=== PATIENT | male | born 1975 | race Caucasian/White ===

== ENCOUNTER 2017-11-09 19:50 | Emergency (ER) | payer OTHER ==
[~2017-11-09] VITALS: Ht 177.8 cm; Wt 95.5 kg
[2017-11-09 19:52] VITALS: BP 141/91; PULSE 93; RESP 16; TEMP 98.7; O2SAT 98
--- NOTE | 2017-11-09 20:53 | PD ---
HPI Chief Complaint: Back/ Neck Pain or Injury Time Seen by Provider: 20:15 Travel History International Travel<30 days: No Contact w/Intl Traveler<30days: No Traveled to known affect area: No History of Present Illness HPI 42 year old male presents to the emergency room for evaluation of low back pain worse on the right that started earlier today. Patient was taking this 2-year- old daughter when pain started. He felt immediate, sharp pain without radiation. Pain is made worse by any range of motion of the back. He has not taken anything to improve symptoms. Since then he has had intermittent paresthesias the right lower extremity. He denies saddle anesthesia or loss of bowel or bladder control. Denies fever, chills, nausea, vomiting, IV drug use, weight loss. Denies chronic medical conditions or daily medications. No history of chronic back pain. [facility] Social History Tobacco Use: No Allergies-Medications (Allergen,Severity, Reaction): Coded Allergies: Penicillins (Verified Allergy, Severe, Anaphylaxis, 11/09/17) Reported Meds & Prescriptions Reported Meds & Active Scripts Active Medrol Dosepak (Methylprednisolone) 4 Mg Dspk 4 Mg PO DIRECTED Per Pharmacist direction Review of Systems Except as stated in HPI: all other systems reviewed are Neg Physical Exam Narrative GENERAL: Well-nourished, well-developed male in no acute distress. Afebrile. Ambulatory. SKIN: Focused skin assessment warm/dry. HEAD: Normocephalic. EYES: No scleral icterus. No injection or drainage. NECK: Supple, trachea midline. No JVD or lymphadenopathy. CARDIOVASCULAR: Regular rate and rhythm without murmurs, gallops, or rubs. RESPIRATORY: Breath sounds equal bilaterally. No accessory muscle use. BACK: No CVA tenderness. No rash. No significant tenderness to palpation of the lumbar spine. Mild tenderness to palpation of the right paraspinous musculature of the lumbar spine. Mild edema of the lower lumbar spine. Data Data Last Documented VS Vital Signs Date Time Temp Pulse Resp B/P (MAP) Pulse Ox O2 Delivery O2 Flow Rate FiO2 11/09/17 22:14 11/09/17 19:52 98.7 93 16 98 Orders Orders Spine, Lumbar - Ltd (Ap & Lat) (11/09/17 ) Ketorolac Inj (Toradol Inj) (11/09/17 21:00) Orphenadrine Inj (Norflex Inj) (11/09/17 21:00) Splint Or Brace Apply/Monitor (11/09/17 21:42) Ed Discharge Order (11/09/17 21:43) Brace Quick Draw Corset (11/09/17 ) [facility] Medical Decision Making Medical Screen Exam Complete: Yes Emergency Medical Condition: Yes Medical Record Reviewed: Yes Differential Diagnosis Strain, fracture, slipped disc, degenerative disc disease, sprain Narrative Course 42-year-old male presents to the emergency room for evaluation of acute low back pain after lifting his 2-year-old daughter earlier today. Pain is more on the right lumbar paraspinous musculature without radiation. No red flag symptoms. No significant midline tenderness. History and physical exam are consistent with muscle strain. Because there is some edema and intermittent paresthesias, x-ray was obtained. Patient signed out to night time provider pending results. Scripts Methylprednisolone Dosepak (Medrol Dosepak) 4 Mg Dspk 4 MG PO DIRECTED, #1 DSPK 0 Refills Per Pharmacist direction Prov: Destiny Chacon 11/09/17 Condition: Stable Ashlee Haile Nov 09, 2017 20:53
[2017-11-09] MEDS ORDERED: ORPHENADRINE INJ 60 MG/2 ML AMP IM ONE (21:00)
[2017-11-09] MEDS ORDERED: KETOROLAC TROMETHAMINE 60 MG/2 ML (IM) VIAL IM ONE (21:00)
--- NOTE | 2017-11-09 21:38 | RADRPT ---
EXAM DATE/TIME: 11/09/2017 20:56 [place] COMPARISON: No previous studies available for comparison. INDICATIONS : Lumbar spine pain after patient twisted back lifting injury today MEDICAL HISTORY : None. SURGICAL HISTORY : None. ENCOUNTER: Initial ACUITY: 1 day PAIN SCORE: 7/10 LOCATION: Lumbar spine FINDINGS: Approximately 7 mm anterolisthesis L4-5 is identified. Spondylolysis is difficult to exclude. Slight degenerative changes seen scattered throughout the CONCLUSION: Grade I anterolisthesis L4-5. Ryan Chicas MD on November 09, 2017 at 21:35 Board Certified Radiologist. This report was verified electronically.
--- NOTE | 2017-11-09 21:46 | PD ---
Physical Exam Time Seen by Provider: 21:43 Narrative Please refer to previous providers documentation for details surrounding the patient's current visit Data Data Last Documented VS Vital Signs Date Time Temp Pulse Resp B/P (MAP) Pulse Ox O2 Delivery O2 Flow Rate FiO2 11/09/17 19:52 98.7 93 16 141/91 (108) 98 Orders Orders Spine, Lumbar - Ltd (Ap & Lat) (11/09/17 ) Ketorolac Inj (Toradol Inj) (11/09/17 21:00) Orphenadrine Inj (Norflex Inj) (11/09/17 21:00) Splint Or Brace Apply/Monitor (11/09/17 21:42) Ed Discharge Order (11/09/17 21:43) [facility] Medical Record Reviewed: Yes Supervised Visit with ARMEN: No Narrative Course Patient is signed out to me with x-ray imaging pending. X-ray imaging is reviewed and discussed with the patient. CT imaging is reviewed and shows Grade I anterolisthesis L4-5. He'll be discharged home with a quick draw back brace, encouraged follow-up with primary care provider and return immediately with any acute worsening of symptoms. Diagnosis Primary Impression: Low back strain Qualified Codes: S39.012A - Strain of muscle, fascia and tendon of lower back , initial encounter Referrals: Neurosurgeon Primary Care Physician Patient Instructions: General Instructions, Low Back Strain (ED) Additional Instruction: Follow-up with a primary care provider Outpatient MRI may be warranted if symptoms persist Wear brace when ambulatory for support. Do not wear this at all times as it may weaken your core muscles, worsening your back pain [facility] of symptoms Med/Other Pt SpecificInfo: Prescription(s) given Scripts Methylprednisolone Dosepak (Medrol Dosepak) 4 Mg Dspk 4 MG PO DIRECTED, #1 DSPK 0 Refills Per Pharmacist direction Prov: Destiny Chacon 11/09/17 Disposition: 01 DISCHARGE HOME Condition: Stable Destiny Chacon Nov 09, 2017 21:46
[2017-11-09] MEDS ORDERED: MEDR4PAK PO (21:49)
== END 2017-11-09 22:12 | disposition home or self-care (01) ==
LOC: NEPK 19:50 → NEPD 22:12
DX: S39.012A Strain of muscle, fascia and tendon of lower back, initial encounter (principal); X50.9XXA Other and unspecified overexertion or strenuous movements or postures, initial encounter
CPT/HCPCS: 72100; 96372; 99283; J1885; J2360; L0627

== ENCOUNTER 2018-04-01 14:03 | Emergency (ER) | payer OTHER ==
[~2018-04-01 14:03] MED LIST: MEDR4PAK PO
[2018-04-01 14:11] VITALS: BP 123/79; PULSE 87; RESP 16; TEMP 98.2; O2SAT 99
[2018-04-01] MEDS ORDERED: NAPR500T2 PO (15:08)
--- NOTE | 2018-04-01 15:08 | PD ---
HPI Chief Complaint: Pain: Acute or Chronic Time Seen by Provider: 14:32 Travel History International Travel<30 days: No Contact w/Intl Traveler<30days: No Traveled to known affect area: No History of Present Illness HPI Is a 43-year-old man presents emerged from complaining of left heel pain. He reports that he has had a previous Achilles tendon rupture with surgical repair several years ago. Today woke up with pain and tenderness in the back of the heel, worse when he dorsiflexes the foot, or with prolonged standing. 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 No athletics. No new change in activity or new foot wear. No other complaints. History Past Medical History Narrative Medical Previous Achilles tendon rupture with surgical repair Social History Alcohol Use: No Tobacco Use: No Allergies-Medications (Allergen,Severity, Reaction): Coded Allergies: Penicillins (Verified Allergy, Severe, Anaphylaxis, 11/09/17) Uncoded Allergies: steroids (Allergy, Severe, 04/01/18) Reported Meds & Prescriptions Reported Meds & Active Scripts Active Medrol Dosepak (Methylprednisolone) 4 Mg Dspk 4 Mg PO DIRECTED Per Pharmacist direction Review of Systems Except as stated in HPI: all other systems reviewed are Neg Physical Exam Narrative GENERAL: Well-appearing 43-year-old man, no acute distress. SKIN: Warm and dry. CARDIOVASCULAR: Warm and well perfused. RESPIRATORY: Normal rate and effort. MUSCULOSKELETAL: Focused examination of the left ankle reveals a little bit tender fullness on the distal Achilles tendon overlying the insertion site on the calcaneus. There is pain with palpation. There is no palpable deformity or disruption of the Achilles tendon. Negative Lubin's test. There is no pain with plantarflexion of the ankle. This swelling appears possibly a little bit fluctuant. NEUROLOGICAL: Awake and alert. No gross deficits. Data Data Last Documented VS Vital Signs Date Time Temp Pulse Resp B/P (MAP) Pulse Ox O2 Delivery O2 Flow Rate FiO2 04/01/18 14:11 98.2 87 16 123/79 (94) 99 MDM Medical Decision Making Medical Screen Exam Complete: Yes Emergency Medical Condition: Yes Differential Diagnosis Apophysitis, bursitis, ezthenopathy, tendinopathy, other Narrative Course Medical decision making Is a 43 oh man presents with a little pain and tender swelling over his Achilles tendon. Of concern, patient is a previous Achilles tendon rupture and previous surgical repair. He has no pain with plantarflexion against resistance the ankle suggesting against the tendinopathy. Will bit of pain with palpation I think this is more likely a bursitis. Will recommend decreased activity level, guarded the ankle some, short course of NSAIDs, outpatient follow-up with Ortho Evra symptoms are not improving. Diagnosis Primary Impression: Achilles bursitis Referrals: Marilynn Regan MD 1 week Patient Instructions: General Instructions Additional Instructions: Reduce tension on the Achilles tendon as discussed with protecting against abrupt flexion of the foot or flexion of the foot against resistance. Take Naprosyn as prescribed. Follow-up with Dr. Regan if you have any persistent symptoms after 1 week. Return to the emergency department for any new or worsening symptoms. Med/Other Pt SpecificInfo: Prescription(s) given Scripts Naproxen (Naproxen) 500 Mg Tab 500 MG PO BID, #20 TAB 0 Refills Prov: Vineet Atkins MD 04/01/18 Disposition: 01 DISCHARGE HOME Condition: Stable Vineet Atkins MD April 01, 2018 15:08
== END 2018-04-01 15:25 | disposition home or self-care (01) ==
LOC: NEPD 14:03
DX: M76.62 Achilles tendinitis, left leg (principal)
CPT/HCPCS: 99283

== ENCOUNTER → 2018-04-26 | Outpatient (CLI) | payer OTHER ==
[~2018-04-26] MED LIST changes: +NAPR500T2 PO
--- NOTE | 2018-04-26 14:07 | RADRPT ---
EXAM DATE: 04/26/2018 1:52 PM EDT AGE/SEX: 43 years / Male INDICATIONS: . Back pain. CLINICAL DATA: This is the patient's initial encounter. Patient reports that signs and symptoms have been present for 1 month and indicates a pain score of 4/10. MEDICAL/SURGICAL HISTORY: None. . Achilles tendon repair. COMPARISON: No prior exams available for comparison. TECHNIQUE: Multiplanar, multisequence MRI of the lumbar spine was performed without contrast. Patie nt was scanned in a sitting position; neutral, flexion, and extension scans were performed in the sa gittal plane. FINDINGS: Vertebra: Homogeneous signal. Normal alignment. Conus: There is grade 1 anterior spondylolisthesis of L4 on L5 secondary to pars defects. T12-L1: The thecal sac has a normal diameter. No evidence of disc bulge or protrusion. The neural foramina are patent bilaterally. L1-L2: The disc demonstrates decreased signal. The thecal sac has a normal diameter. No evidence of disc bulge or protrusion. The neural foramina are patent bilaterally. L2-L3: The thecal sac has a normal diameter. No evidence of disc bulge or protrusion. The neural foramina are patent bilaterally. L3-L4: The thecal sac has a normal diameter. No evidence of disc bulge or protrusion. The neural foramina are patent bilaterally. L4-L5: Again noted is the grade 1 anterior spondylolisthesis. The disc demonstrates decreased heigh t and decreased signal. It maintains its alignment with the superior aspect of L5 creating a bulge li ke configuration. There is mild facet hypertrophy. Narrowing of the thecal sac is not seen. There is narrowing of the neural foramina bilaterally secondary to the bulging disc configuration. L5-S1: The thecal sac has a normal diameter. No evidence of disc bulge or protrusion. The neural foramina are patent bilaterally. There is mild facet hypertrophy. CONCLUSION: 1. Grade 1 anterior spondylolisthesis of L4 on L5 secondary to pars defects. The bulging disc config uration does cause narrowing of the neural foramina bilaterally. 2. Decreased signal in the disc at the L1-L2 level consistent with some desiccation. Loss of height is not seen. 3. Lower lumbar facet hypertrophy. Electronically signed by: Esvin Luke MD 04/26/2018 2:06 PM EDT
== END ==
LOC: HRAD 12:54
PROVIDERS: ATTEND Family Medicine
DX: M54.16 Radiculopathy, lumbar region (principal)
CPT/HCPCS: 72148

== ENCOUNTER 2018-08-28 11:19 | Observation (INO) ==
[2018-08-28 11:24] VITALS: TEMP 97.8
[2018-08-28 12:26] VITALS: RESP 18
[2018-08-28 13:01] LABS: Baso % (Auto) 0.6 % (0.0-2.0); Eos # (Auto) 0.2 th/mm3 (0.0-0.4); Eos % (Auto) 2.3 % (0.0-4.0); Hematocrit 45.2 % (39.0-51.0); Hemoglobin 15.9 gm/dL (13.0-17.0); Lymph # (Auto) 2.3 th/mm3 (1.0-4.8); Lymph % (Auto) 25.9 % (9.0-44.0); Mean Corpuscular HGB Conc 35.3 % (32.0-36.0); Mean Corpuscular Hemoglobin 31.8 pg (27.0-34.0); Mean Corpuscular Volume 90.1 fL (80.0-100.0); Mean Platelet Volume 7.9 fL (7.0-11.0); Mono # (Auto) 0.5 th/mm3 (0.0-0.9); Mono % (Auto) 5.6 % (0.0-8.0); Neut # (Auto) 5.7 th/mm3 (1.8-7.7); Neut % (Auto) 65.6 % (16.0-70.0); Platelet Count 280 th/mm3 (150-450); Red Blood Count 5.01 mil/mm3 (4.50-5.90); Red Cell Distribution Width 12.9 % (11.6-17.2); White Blood Count 8.7 th/mm3 (4.0-11.0)
--- NOTE | 2018-08-28 13:01 | ED ---
HPI General Chief Complaint: Chest Pain Stated Complaint: Chest Pain Time Seen by Provider: 08/28/18 12:21 Source: patient Mode of arrival: ambulatory Limitations: no limitations History of Present Illness HPI narrative: 43-year-old male presents to the emergency department for evaluation of right-sided chest pain that started while playing with his daughter couple days ago. Patient states that the pain is located in the right lower chest and is since migrated to the right chest wall and is associated with shortness of breath. The pain increases with deep breaths and rated 7/10 at its worse. As he is sitting, his pain is 5/6 out of 10. He denies nausea or vomiting. He denies history of chest pain previously. He has a history of hypertension but denies history of hyperlipidemia, diabetes, tobacco use. Says he occasionally drinks alcohol. He said he had a stress test as part of his normal check for work and states this was normal. He denies history of cardiac or pulmonary issues. MD complaint: Reports chest pain Onset (ago): day(s) Duration: constant Onset: during exertion Pain location: Reports right chest Severity: moderate Quality: Reports aching Pain radiation: Reports none Relieving factors: remaining still Exacerbating factors: inspiration Context: Denies recent surgery, recent immobilization, recent travel, trauma/ injury and history of DVT/PE Associated symptoms: Denies nausea and vomiting Treatments prior to arrival chest pain: Reports none Related Data Home Medications Medication Instructions Recorded Confirmed gabapentin 300 mg PO BID 07/12/18 08/28/18 ibuprofen 400 mg PO QID PRN 07/12/18 08/28/18 lisinopril 10 mg PO DAILY 07/12/18 08/28/18 Allergies Allergy/AdvReac Type Severity Reaction Status Date / Time Penicillins Allergy Severe Anaphylaxis Verified 11/09/17 21:01 steroids Allergy Severe Anaphylaxis Uncoded 07/12/18 10:00 Review of Systems ROS: all other systems reviewed are negative [facility] Medical History Medical History Achilles rupture (Acute) Chronic low back pain (Acute) High blood pressure (Acute) Kidney stones (Acute) Surgical History Surgical History Hx of hernia repair (Acute) Social History Social History Substance History: No History of Abuse Second Hand Smoke Exposure: No Smoking Status: Never smoker Tobacco Type: Smokeless Tobacco How Often Do You Have a Drink Containing Alcohol: 4 or more times a week Recent Travel in [facility] within the Last 8 Weeks: No Recent Out of Country Travel within the Last 8 Weeks: No Immunization History Tetanus Immunization: Unsure Exam Narrative Exam Narrative: GENERAL: Well-developed well-nourished in no apparent distress SKIN: Focused skin assessment warm/dry. HEAD: Atraumatic. Normocephalic. EYES: Pupils equal and round. No scleral icterus. No injection or drainage. ENT: No nasal bleeding or discharge. Mucous membranes pink and moist. NECK: Trachea midline. No JVD. No lymphadenopathy CARDIOVASCULAR: Regular rate and rhythm. No murmur appreciated. Mild tenderness palpation of the chest wall, patient says it is "pressure" when I palpate RESPIRATORY: No accessory muscle use. Clear to auscultation. Breath sounds equal bilaterally. GASTROINTESTINAL: Abdomen soft, non-tender, nondistended. Hepatic and splenic margins not palpable. No CVA tenderness MUSCULOSKELETAL: No obvious deformities. No clubbing. No cyanosis. No edema. Tenderness palpation of the calves NEUROLOGICAL: Awake and alert. No obvious cranial nerve deficits. Motor grossly within normal limits. Normal speech. PSYCHIATRIC: Appropriate mood and affect; insight and judgment normal. Course Initial Documented Vital Signs Temperature 97.8 F 08/28/18 11:22 Pulse Rate 90 08/28/18 11:22 Respiratory Rate 20 08/28/18 11:22 Blood Pressure 142/82 H 08/28/18 11:22 Pulse Oximetry 98 08/28/18 11:22 Last Documented Vital Signs Temperature 97.8 F 08/28/18 11:22 Pulse Rate 68 08/28/18 13:23 Respiratory Rate 18 08/28/18 13:23 Blood Pressure 126/75 08/28/18 13:23 Pulse Oximetry 98 08/28/18 13:23 Clinical Decision Support HEART Score Questions History: Slightly suspicious EKG: Normal Age: < 45 years Risk Factors: 1-2 Risk Factors Initial Troponin: Normal Limit Heart Score HEART Score: 1 PERC Rule Age greater than or equal to 50: No HR greather than or equal to 100: No Sa02 on room air is less than 95%: No Unilateral Leg Swelling: No Hemoptysis: No Recent Surgery or Trauma: Yes (lumbar spine steroid injection) Prior PE or DVT: No Hormone Use: No Medical Decision Making MDM Narrative Medical decision making narrative: 43-year-old male presents to the emergency department for evaluation of chest pain started a couple days ago after playing with his daughter. Patient says the pain is located in the right chest wall and is nonradiating and the pain is 5/10 with sitting, increased to 7/10 with deep breaths. 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 Vital signs are stable. Unable to completely use the PERC rule to rule out PE. Order d-dimer which was negative. Cardiac enzymes negative. EKG sinus rhythm rate 79, No STEMI changes. No previous for comparison. Zofran for nausea. ASA 324mg administered. Hydrocodone for pain as he was unsure if he would stay in the [facility]. He agrees to stay for observation. Pt will be admitted to the chest pain center, r/o ACS. Will apply nitro paste. Medical Screen Exam Complete: Yes Emergency Medical Condition: Yes Differential Diagnosis Differential Diagnosis: Atypical chest pain, angina, muscle spasm, chest wall contusion, rib fracture, pericardial effusion Lab Data Result diagrams: 08/28/18 10:42 08/28/18 10:42 Lab Results 08/28/18 08/28/18 08/28/18 Range/Units 10:42 10:42 10:42 WBC 8.7 (4.0-11.0) th/mm3 RBC 5.01 (4.50-5.90) mil/mm3 Hgb 15.9 (13.0-17.0) gm/dL Hct 45.2 (39.0-51.0) % MCV 90.1 (80.0-100.0) fL MCH 31.8 (27.0-34.0) pg MCHC 35.3 (32.0-36.0) % RDW 12.9 (11.6-17.2) % Plt Count 280 (150-450) th/mm3 MPV 7.9 (7.0-11.0) fL Neut % (Auto) 65.6 (16.0-70.0) % Lymph % (Auto) 25.9 (9.0-44.0) % [place] % (Auto) 5.6 (0.0-8.0) % Eos % (Auto) 2.3 (0.0-4.0) % Baso % (Auto) 0.6 (0.0-2.0) % Neut # (Auto) 5.7 (1.8-7.7) th/mm3 Lymph # (Auto) 2.3 (1.0-4.8) th/mm3 [place] # (Auto) 0.5 (0.0-0.9) th/mm3 Eos # (Auto) 0.2 (0.0-0.4) th/mm3 Baso # (Auto) 0.0 (0.0-0.2) th/mm3 WBC Differential . Differential Comment Auto diff final PT 10.0 (9.8-11.6) sec INR 1.0 Ratio APTT 26.0 (24.3-30.1) sec D-Dimer Quant (PE/DVT) 0.23 (0.00-0.50) mg/L FEU Sodium (136-145) meq/L Potassium (3.5-5.1) meq/L Chloride (98-107) meq/L Carbon Dioxide (21.0-32.0) meq/L Anion Gap (5-15) meq/L BUN (7-18) mg/dL Creatinine (0.60-1.30) mg/dL Estimated GFR (>89) mL/min Random Glucose (74-106) mg/dL Calcium (8.5-10.1) mg/dL Total Bilirubin (0.2-1.0) mg/dL AST (15-37) U/L ALT (12-78) U/L Alkaline Phosphatase (45-117) U/L Troponin I (0.02-0.05) ng/mL Total Protein (6.4-8.2) g/dL Albumin (3.4-5.0) g/dL 08/28/18 Range/Units 10:42 WBC (4.0-11.0) th/mm3 RBC (4.50-5.90) mil/mm3 Hgb (13.0-17.0) gm/dL Hct (39.0-51.0) % MCV (80.0-100.0) fL MCH (27.0-34.0) pg MCHC (32.0-36.0) % RDW (11.6-17.2) % Plt Count (150-450) th/mm3 MPV (7.0-11.0) fL Neut % (Auto) (16.0-70.0) % Lymph % (Auto) (9.0-44.0) % [place] % (Auto) (0.0-8.0) % Eos % (Auto) (0.0-4.0) % Baso % (Auto) (0.0-2.0) % Neut # (Auto) (1.8-7.7) th/mm3 Lymph # (Auto) (1.0-4.8) th/mm3 [place] # (Auto) (0.0-0.9) th/mm3 Eos # (Auto) (0.0-0.4) th/mm3 Baso # (Auto) (0.0-0.2) th/mm3 WBC Differential Differential Comment PT (9.8-11.6) sec INR Ratio APTT (24.3-30.1) sec D-Dimer Quant (PE/DVT) (0.00-0.50) mg/L FEU Sodium 139 (136-145) meq/L Potassium 4.6 (3.5-5.1) meq/L Chloride 106 (98-107) meq/L Carbon Dioxide 27.9 (21.0-32.0) meq/L Anion Gap 5 (5-15) meq/L BUN 11 (7-18) mg/dL Creatinine 1.12 (0.60-1.30) mg/dL Estimated GFR 71 L (>89) mL/min Random Glucose 85 (74-106) mg/dL Calcium 8.8 (8.5-10.1) mg/dL Total Bilirubin 0.5 (0.2-1.0) mg/dL AST 18 (15-37) U/L ALT 26 (12-78) U/L Alkaline Phosphatase 60 (45-117) U/L Troponin I Less than 0.02 L (0.02-0.05) ng/mL Total Protein 7.8 (6.4-8.2) g/dL Albumin 4.2 (3.4-5.0) g/dL Imaging Data Radiologist's impression: Chest X-Ray 08/28/18 12:32 CONCLUSION: No acute intrathoracic disease. Discharge Plan Discharge Disposition Patient Disposition: 30 Still Patient Discharge Condition Condition: Stable Discharge Order Discharge Orders: Discharge Order (Routine); Ordered 08/28/18 Ordered By: Kyle A Azzarello Discharge Details Diagnosis: Chest pain Physicians Team ED Provider: Glory Kwok ED Midlevel Provider: Aubree Bond Primary Care Provider: UNKNOWN, Attending Provider: Gabino Merino Status ED Status: Left Department Discharge Information Discharge Date/Time: 08/28/18 15:13
--- NOTE | 2018-08-28 13:14 | XR ---
EXAM DATE: 08/28/2018 12:32 PM EDT AGE/SEX: 43 years / Male INDICATIONS: Chest pain. CLINICAL DATA: This is the patient's initial encounter. Patient reports that signs and symptoms have been present for 1 day and indicates a pain score of 7/10. MEDICAL/SURGICAL HISTORY: None. None. COMPARISON: . FINDINGS: A single AP view of the chest demonstrates the lungs to be symmetrically aerated without evidence of mass, infiltrate or effusion. The cardiomediastinal contours are unremarkable. Osseous structures a re intact. CONCLUSION: No acute intrathoracic disease. Electronically signed by: Irwin Lopez MD 08/28/2018 1:13 PM EDT
[2018-08-28 13:19] LABS: Albumin 4.2 g/dL (3.4-5.0); Anion Gap 5 meq/L (5-15); Aspartate Aminotransferase 18 U/L (15-37); Blood Urea Nitrogen 11 mg/dL (7-18); Calcium 8.8 mg/dL (8.5-10.1); Carbon Dioxide 27.9 meq/L (21.0-32.0); Chloride 106 meq/L (98-107); Glomerular Filtration Rate 71 mL/min (>89); Glucose,Random 85 mg/dL (74-106); Potassium 4.6 meq/L (3.5-5.1); Sodium 139 meq/L (136-145)
[2018-08-28 13:20] LABS: Alanine Aminotransferase 26 U/L (12-78)
[2018-08-28 13:24] LABS: Alkaline Phosphatase 60 U/L (45-117); Total Protein 7.8 g/dL (6.4-8.2)
[2018-08-28 13:25] VITALS: BP 126/75; PULSE 68; O2SAT 98
--- NOTE | 2018-08-28 14:44 | P.HPCA ---
History of Present Illness Primary Care Physician: UNKNOWN Chief Complaint: Chest pain History of Present Illness: This is a 43-year-old male history of hypertension that presents to ED via private vehicle planing of 3 days of intermittent right-sided chest discomfort last 4-5 minutes at a time. Hurts more to take in a deep breath. Denies associated breath, nausea, or diaphoresis. Lying down does seem to help. Activities seem to bring on but states is really not exertional activity. Just movements. Denies history of CAD. Cannot recall prior stress test. Currently denies chest discomfort. History of hypertension and chronic back pain. Denies hyperlipidemia, diabetes , and known CAD. Denies family history of CAD. He is a non-smoker. - Diagnosis (1) Chest pain (2) Hypertension (3) Chronic back pain Review of Systems General: Patient denies fevers, chills, and recent travel. HEENT: Patient denies headache, sore throat, difficulty swallowing. Cardiovascular: Has the chest discomfort as mentioned above. Denies sensation of heart beating rapidly or irregularly. No syncope. Denies diaphoresis per Respiratory: Denies shortness of breath or inspirational chest discomfort. Denies coughing wheezing or hemoptysis. GI: Patient denies nausea, vomiting, diarrhea, abdominal pain, bloody stools. Musculoskeletal: He has chronic back pain. Patient denies joint pain or edema. Denies calf pain or edema. Neurovascular: Patient denies numbness, tingling, weakness in extremities. Denies headache. Endocrine: Denies polyuria and polydipsia. Hematologic: Denies easy bruising. Skin: Denies rash or itching. PMFSH - History History Provided By: Patient - Medical History Medical History: Medical History (Last Updated 07/12/18 @ 09:55 by Luisa Mortensen RN) Achilles rupture Chronic low back pain High blood pressure Kidney stones - Surgical History Surgical History: Surgical History (Last Updated 07/12/18 @ 09:55 by Luisa Mortensen RN) Hx of hernia repair - Tobacco History Second Hand Smoke Exposure: No Tobacco Use In Past 30 Days: No Smoking Status: Never smoker Tobacco Type: Smokeless Tobacco - Alcohol History How Often Do You Have a Drink Containing Alcohol: 4 or more times a week - Substance Use History Substance History: No History of Abuse - Travel History Recent Travel in the [facility] Within the Last 8 Weeks: No Recent Travel Out of the Country Within the Last 8 Weeks: No - Immunization History Tetanus Immunization: Unsure Medications and Allergies Active Medications: Active Medications Aspirin (Aspirin) 325 mg PO DAILY GENESIS Nitroglycerin (Nitro-Bid 2% Oint) 1 inch TOPICAL Q6HR GENESIS Ondansetron HCl (Zofran Inj) 4 mg IV.PUSH Q6H PRN PRN Reason: NAUSEA Sodium Chloride (Ns Flush) 2 ml IV.FLUSH BID GENESIS Sodium Chloride (Ns Flush) 2 ml IV.FLUSH PRN PRN PRN Reason: FLUSH AFTER USING IV ACCESS Allergies Allergy/AdvReac Type Severity Reaction Status Date / Time Penicillins Allergy Severe Anaphylaxis Verified 11/09/17 21:01 steroids Allergy Severe Anaphylaxis Uncoded 07/12/18 10:00 Home Medications Medication Instructions Recorded Confirmed Type gabapentin 300 mg PO BID 07/12/18 08/28/18 History ibuprofen 400 mg PO QID PRN 07/12/18 08/28/18 History lisinopril 10 mg PO DAILY 07/12/18 08/28/18 History Exam Vital signs: Vital Signs 08/28/18 11:22 08/28/18 12:24 08/28/18 13:23 Temperature 97.8 F Pulse Rate 90 74 68 Respiratory Rate 20 18 18 Blood Pressure 142/82 H 119/61 126/75 Pulse Oximetry 98 99 97 Intake & Output 08/27/18 08/28/18 08/28/18 18:59 06:59 18:59 Weight 104.326 kg Narrative: GENERAL: This is a well-nourished, well-developed patient, in no apparent distress. Patient speaks in clear complete sentences. Patient is pleasant. HEENT: Head is atraumatic and normocephalic. Neck is supple without lymphadenopathy and trachea is midline. No JVD or carotid bruits. CARDIOVASCULAR: Regular rate and rhythm without murmurs, gallops, or rubs. RESPIRATORY: Clear to auscultation. Breath sounds equal bilaterally. No wheezes , rales, or rhonchi. Chest wall is nontender. No use of accessory muscles. GASTROINTESTINAL: Abdomen is nontender, nondistended. Abdomen soft. No obvious pulsatile mass or bruit. No CVA tenderness. Strong femoral pulses bilaterally. Normal bowel sounds in all quadrants. MUSCULOSKELETAL: Patient is moving upper and lower extremities freely. No calf tenderness or edema, no Homans sign. Strong pulses in upper and lower extremities. NEUROLOGICAL: Patient is alert and oriented. Cranial nerves 2-12 are grossly intact. No focal deficits and speech is clear. SKIN: No rash and turgor is normal. Results 08/28/18 10:42 08/28/18 10:42 Cardiac Enzymes 08/28/18 Range/Units 10:42 AST 18 (15-37) U/L Troponin I Less than 0.02 L (0.02-0.05) ng/mL Coagulation 08/28/18 Range/Units 10:42 PT 10.0 (9.8-11.6) sec APTT 26.0 (24.3-30.1) sec CBC 08/28/18 Range/Units 10:42 WBC 8.7 (4.0-11.0) th/mm3 RBC 5.01 (4.50-5.90) mil/mm3 Hgb 15.9 (13.0-17.0) gm/dL Hct 45.2 (39.0-51.0) % Plt Count 280 (150-450) th/mm3 Neut # (Auto) 5.7 (1.8-7.7) th/mm3 Lymph # (Auto) 2.3 (1.0-4.8) th/mm3 Armstrong # (Auto) 0.5 (0.0-0.9) th/mm3 Eos # (Auto) 0.2 (0.0-0.4) th/mm3 Baso # (Auto) 0.0 (0.0-0.2) th/mm3 Comprehensive Metabolic Panel 08/28/18 Range/Units 10:42 Sodium 139 (136-145) meq/L Potassium 4.6 (3.5-5.1) meq/L Chloride 106 (98-107) meq/L Carbon Dioxide 27.9 (21.0-32.0) meq/L BUN 11 (7-18) mg/dL Creatinine 1.12 (0.60-1.30) mg/dL Calcium 8.8 (8.5-10.1) mg/dL AST 18 (15-37) U/L ALT 26 (12-78) U/L Alkaline Phosphatase 60 (45-117) U/L Total Protein 7.8 (6.4-8.2) g/dL Albumin 4.2 (3.4-5.0) g/dL Intake and Output 08/27/18 08/28/18 08/28/18 22:59 06:59 14:59 Other: Weight 104.326 kg Patient Weight 08/29/18 06:59 Weight 104.326 kg - Imaging and Cardiology Imaging: Impressions Chest X-Ray 08/28/18 12:32 CONCLUSION: No acute intrathoracic disease. EKG interpretations - EKG EKG shows: sinus rhythm (Initial EKG is sinus rhythm without significant ST segment depressions or elevations.) Caprini VTE Risk Assessment Caprini VTE Risk Assessment: No/Low Risk (score <= 1) Caprini Risk Assessment Model: Point Value = 1 Point Value = 2 Point Value = 3 Point Value = 5 Age 41-60 Minor surgery BMI > 25 kg/m2 Swollen legs Varicose veins or History of unexplained or recurrent spontaneous Oral contraceptives or hormone replacement Sepsis (< 1 month) Serious lung disease, including pneumonia (< 1 month) Abnormal pulmonary function Acute myocardial infarction Congestive heart failure (< 1 month) History of inflammatory bowel disease Medical patient at bed rest Age 61-74 Arthroscopic surgery Major open surgery (> 45 min) Laparoscopic surgery (> 45 min) Malignancy Confined to bed (> 72 hours) Immobilizing plaster cast Central venous access Age >= 75 History of VTE Family history of VTE Factor V Leiden Prothrombin [id number] Lupus anticoagulant Anticardiolipin antibodies Elevated serum homocysteine Heparin-induced thrombocytopenia Other congenital or acquired thrombophilia Stroke (< 1 month) Elective arthroplasty Hip, pelvis, or leg fracture Acute spinal cord injury (< 1 month) Prophylaxis Regimen: Total Risk Factor Score Risk Level Prophylaxis Regimen 0-1 Low Early ambulation 2 Moderate Order ONE of the following: *Sequential Compression Device (SCD) *Heparin 5000 units SQ BID 3-4 Higher Order ONE of the following medications: *Heparin 5000 units SQ TID *Enoxaparin/Lovenox 40 mg SQ daily (WT < 150 kg, CrCl > 30 mL/min) *Enoxaparin/Lovenox 30 mg SQ daily (WT < 150 kg, CrCl > 10-29 mL/min) *Enoxaparin/Lovenox 30 mg SQ BID (WT < 150 kg, CrCl > 30 mL/min) AND/OR *Sequential Compression Device (SCD) 5 or more Highest Order ONE of the following medications: *Heparin 5000 units SQ TID (Preferred with Epidurals) *Enoxaparin/Lovenox 40 mg SQ daily (WT < 150 kg, CrCl > 30 mL/min) *Enoxaparin/Lovenox 30 mg SQ daily (WT < 150 kg, CrCl > 10-29 mL/min) *Enoxaparin/Lovenox 30 mg SQ BID (WT < 150 kg, CrCl > 30 mL/min) AND *Sequential Compression Device (SCD) Assessment and Plan - Assessment (1) Chest pain Code(s): R07.9 - Chest pain, unspecified Status: Acute (2) Hypertension Code(s): I10 - Essential (primary) hypertension Status: Acute (3) Chronic back pain Code(s): M54.9 - Dorsalgia, unspecified; G89.29 - Other chronic pain Status: Acute - Plan * Chest pain: Patient has been seen by Dr. Gabino Merino of cardiology in the chest pain center. His symptoms seem atypical. He will undergo a Sourav protocol ETT and be discharged home if the stress test is nonischemic with instructions to follow-up with PCP. Return to ED for interval issues. * Hypertension: Continue medication. * Chronic back pain: Continue his medication and follow with PCP. Patient is stable at this time. He is agreeable to this plan.
--- NOTE | 2018-08-29 07:51 | ECG ---
Date Performed: 08/28/2018 Time Performed: 11:29:30 PTAGE: 43 years EKG: Sinus rhythm NORMAL ECG NO PREVIOUS TRACING DOCTOR: Filomena Merrill Interpretating Date/Time 08/29/2018 07:49:28
--- NOTE | 2018-08-29 07:53 | TR ---
Date Performed: 08/28/2018 Time Performed: 15:03:45 DOCTOR: Filomena Merrill DRUG LIST: CLINICAL HISTORY: CHEST PAIN RULE OUT ACS REASON FOR TEST: Chest pain REASON FOR ENDING: OBSERVATION: CONCLUSION: ANNE MARIE PROTOCOL. NO CP. TEST STOPPED AFTER EXCEEDING GOAL HR SECONDARY TO SOB AND LEG FATIGUE.Maximum GI=318 % Max HR Achieved=95.0% Maximum DL=909/86 Total Exercise Time=10:00 COMMENTS: No definitive ischemia
[2018-08-29] MEDS ORDERED: Aspirin 325 MG Tablet PO SCH (09:00)
== END 2018-08-28 16:21 | disposition home or self-care (01) ==
LOC: NEDA 11:19 → NEPC 11:19 → NEPGCP 14:54
PROVIDERS: ADMIT Internal Medicine Cardiovascular Disease; ATTEND Internal Medicine Cardiovascular Disease